=== PATIENT | female | born 1995 | race Caucasian/White ===

== ENCOUNTER 2022-02-23 17:40 | Inpatient (IN) ==
[2022-02-23] MEDS ORDERED: Lactated Ringers 1000 ml BAG 1,000 ML IV ONE (18:27)
[2022-02-23] MEDS ORDERED: Dinoprostone 10 MG VAG.SUPP VAGINAL ONE (18:27)
[2022-02-23] MEDS ORDERED: Buffered Lidocaine 1% SYRIN 1 ml INTRADERM ONE (18:27)
[2022-02-23] MEDS ORDERED: Lactated Ringers 1000 ml BAG 1,000 ML IV SCH (19:00)
[2022-02-23 19:32] LABS: Urine Benzodiazepine Screen None Detected (None Detect); Urine Cannabinoids Screen None Detected (None Detect); Urine Opiates Screen None Detected (None Detect)
[2022-02-24 10:19] LABS: Hematocrit 41 % (35-47); Mean Corpuscular HGB Conc 34 g/dL (31-36); Mean Corpuscular Hemoglobin 28 pg (27-31); Mean Corpuscular Volume 82 fL (80-97); Mean Platelet Volume 10.6 fL (7.4-10.4); Platelet Count 217 10^3/uL (150-450); Red Blood Count 5.05 10^6 /uL (3.70-4.87); Red Cell Distribution Width 15 % (10-15); White Blood Count 15.4 10^3/uL (3.5-10.8)
[2022-02-24] MEDS ORDERED: OBEPIDURAL (200 ML) 200 ML EPIDURAL ONE (10:42)
[2022-02-24] MEDS ORDERED: Lidocaine 1.5% EPI 1:200,000 30 ML SDV ONE (11:05)
[2022-02-24 11:12] LABS: ABS Lymphocytes 1.1 10^3/ul (1.0-4.8); ABS Monocytes 0.5 10^3/ul (0-0.8); ABS Neutrophils 13.8 10^3/ul (1.5-7.7); Large Platelets Present; Lymphocyte % 6.9 %
[2022-02-24 12:07] LABS: Urine Appearance Clear; Urine Bilirubin Negative (Negative); Urine Blood Negative (Negative); Urine Color Yellow; Urine Glucose Negative (Negative); Urine Ketones 1+ (Negative); Urine Nitrite Negative (Negative); Urine Protein 3+(>=500 mg/dL) (Negative); Urine Specific Gravity 1.024 (1.002-1.030); Urine Urobilinogen Negative (Negative)
[2022-02-24 12:22] LABS: Urine Bacteria Absent (Absent); Urine Red Blood Cell Trace(0-2/hpf) (Absent); Urine Squamous Epithelial Cell Present (Absent); Urine White Blood Cell Trace(0-5/hpf) (Absent)
[2022-02-24] MEDS ORDERED: Terbutaline INJ 1 MG/ML 1 ml VIAL SUBCUT ONE (12:29)
[2022-02-24] MEDS ORDERED: Terbutaline INJ 1 MG/ML 1 ml VIAL ONE (12:30)
[2022-02-24] MEDS ORDERED: Lidocaine 2% w/ EPI 1:200,000 MPF 20 ML SDV VIAL ONE ×2 (12:34→12:49)
[2022-02-24] MEDS ORDERED: ceFOXitin 2 GM IVPREMIX 2 GM/50 ML BAG ONE (12:35)
[2022-02-24] MEDS ORDERED: Sodium Citrate/Citric Acid LIQ 15 ML UDC ONE (12:35)
[2022-02-24] MEDS ORDERED: Oxytocin 10 UNITS/ML 1 ML VIAL ONE ×2 (12:53→13:28)
[2022-02-24] MEDS ORDERED: Morphine PF AMP (0.5MG/ML) 5 MG/10 ML AMP ONE (12:57)
[2022-02-24] MEDS ORDERED: Glycerin ADULT 2.4 gm SUPP PR PRN (13:39)
[2022-02-24] MEDS ORDERED: Dibucaine 1% OINT 28.35 GM TUBE PR PRN (13:39)
[2022-02-24] MEDS ORDERED: Witch Hazel PAD JAR TOPICAL PRN (13:39)
[2022-02-24] MEDS ORDERED: Naloxone 0.4 mg VIAL 0.4 mg/ml 1 ml VIAL IV PRN ×2 (13:50)
[2022-02-24] MEDS ORDERED: Ondansetron 4 mg VIAL 2 MG/ML 2 ml VIAL IV PRN (13:50)
[2022-02-24] MEDS ORDERED: Acetaminophen IV 1 GM/100ML 100 ML IV ONE (13:51)
[2022-02-24] MEDS ORDERED: Oxytocin in LR 20 UNITS/1,000 ML BAG IVPB SCH (14:00)
[2022-02-24] MEDS ORDERED: Lactated Ringers 1000 ml BAG 1,000 ML IV SCH (14:00)
[2022-02-24] MEDS ORDERED: Phenylephrine 40 mcg/mL 10mL (400mcg) SYRINGE ONE (14:21)
[2022-02-24] MEDS ORDERED: diPHENhydraMINE IV 50 MG/ML 1 ml VIAL (BENADRYL) IV PRN (18:25)
[2022-02-25 07:25] LABS: ABS Lymphocytes 1.2 10^3/ul (1.0-4.8); ABS Monocytes 0.7 10^3/ul (0-0.8); ABS Neutrophils 10.3 10^3/ul (1.5-7.7); Eosinophil % 0.1 %; Hematocrit 33 % (35-47); Hemoglobin 10.9 g/dL (12.0-16.0); Lymphocyte % 10.2 %; Mean Corpuscular HGB Conc 33 g/dL (31-36); Mean Corpuscular Hemoglobin 28 pg (27-31); Mean Corpuscular Volume 83 fL (80-97); Mean Platelet Volume 10.4 fL (7.4-10.4); Platelet Count 159 10^3/uL (150-450); Red Blood Count 3.97 10^6 /uL (3.70-4.87); Red Cell Distribution Width 15 % (10-15); White Blood Count 12.3 10^3/uL (3.5-10.8)
[2022-02-26 07:59] VITALS: BP 128/76
== END 2022-02-26 16:20 | disposition home or self-care (01) | DRG 540 ==
LOC: MCHOBOUT 17:40 → MCHOB 18:54
PROVIDERS: ADMIT Obstetrics & Gynecology; ATTEND Obstetrics & Gynecology